=== PATIENT | female | born 1970 | race Two or more races ===

== ENCOUNTER 2021-08-04 14:44 | Outpatient (CLI) | payer OTHER | END 2021-08-04 14:55 | disposition home or self-care (01) | LOC: MAMO-SONO 14:44 | PROVIDERS: ATTEND Specialist | DX: N64.89 Other specified disorders of breast (principal); N60.11 Diffuse cystic mastopathy of right breast; N60.12 Diffuse cystic mastopathy of left breast; Z12.31 Encounter for screening mammogram for malignant neoplasm of breast ==

== ENCOUNTER 2024-10-14 08:48 | Outpatient (CLI) | payer OTHER | END 2024-10-14 08:51 | disposition home or self-care (01) | LOC: MAMO-SONO 08:48 | PROVIDERS: ATTEND Specialist | DX: N60.11 Diffuse cystic mastopathy of right breast (principal); N60.12 Diffuse cystic mastopathy of left breast ==

== ENCOUNTER 2024-12-16 09:53 | Outpatient (CLI) | payer OTHER | END 2024-12-16 10:01 | disposition home or self-care (01) | LOC: TOM 09:53 | DX: C25.9 Malignant neoplasm of pancreas, unspecified (principal) ==